=== PATIENT | female | born 1995 | race Hispanic/Latino ===

== ENCOUNTER → 2018-10-20 | Outpatient (CLI) | payer OTHER ==
--- NOTE | 2018-10-20 15:47 | Diagnostic Imaging Report ---
First trimester ultrasound, 10/20/2018. History: Amenorrhea Comparison: None available. Discussion: Transabdominal and transvaginal evaluation of the pelvis was performed in the transverse and longitudinal planes. The uterus is normal in size measuring 11.8 x 5.9 x 8.4 cm. A nonviable intrauterine is present with a 4. Gestational sac is abnormal in contour and has a mean gestational sac diameter of 4.6 cm corresponding to gestational age of 10 weeks 3 days. The crown-rump length measures 1.73 cm consistent with gestational age of 8 weeks 2 days. cardiac activity is not identified. The right ovary is obscured by bowel gas. The left ovary measures 3.5 x 1.4 x 2.7 cm. The left ovary demonstrates normal color Doppler flow. There is no evidence of an adnexal mass. There is no evidence of free fluid. IMPRESSION: Nonviable intrauterine . No cardiac activity is identified. Signed by: Bobby Guzmán MD on 10/20/2018 3:43 PM
== END ==
LOC: US 14:20
PROVIDERS: ATTEND Obstetrics & Gynecology Obstetrics
DX: N91.2 Amenorrhea, unspecified (principal)
CPT/HCPCS: 76801